=== PATIENT | male | born 1995 | race African-American/Black ===

== ENCOUNTER 2022-08-06 15:15 | Emergency (ER) | payer SELFPAY ==
[~2022-08-06] VITALS: Ht 188 cm; Wt 81.8 kg
[2022-08-06 15:40] VITALS: TEMP 98
[2022-08-06 16:21] LABS: BASO % 0.5 % (0.0-2.0); EOS % 0.2 % (0.0-4.0); GRAN # 2.2 K/mm3 (1.4-6.5); GRAN % 51.5 % (42.2-75.2); HEMATOCRIT 45.7 % (42.0-52.0); HEMOGLOBIN 16.4 g/dl (13.5-18.0); LYMPH # 1.5 K/mm3 (1.2-3.4); LYMPH % 36.1 % (20.0-51.0); MEAN CELL VOLUME 82 fl (80.0-100.0); MEAN CORPUSCULAR HEMOGLOBIN 29 pg (27-31); MEAN CORPUSCULAR HGB CONC 36 g/dl (33.0-37.0); MEAN PLATELET VOLUME 9.9 fl (7.4-10.4); MONO # 0.5 K/mm3 (0.1-0.6); MONO % 11.2 % (1.7-9.3); PLATELET COUNT 215 K/mm3 (130-400); RED BLOOD COUNT 5.59 M/mm3 (4.20-5.60); REDCELL DISTRIBUTION WIDTH-CV 11.1 % (11.5-14.5)
[2022-08-06 16:46] LABS: ALANINE AMINOTRANSFERASE 13 U/L (0-55); ALBUMIN 3.8 gm/dL (3.5-5.0); ALKALINE PHOSPHATASE 82 U/L (40-150); ANION GAP 20 mmol/L (7-16); AST,SGOT 13 U/L (5-34); BILIRUBIN,TOTAL 0.9 mg/dL (0.2-1.2); BLOOD UREA NITROGEN 12 mg/dL (9-21); CALCIUM 9.6 mg/dL (8.4-10.2); CARBON DIOXIDE 15 mmol/L (22-29); CHLORIDE 99 mmol/L (98-107); CREATININE, serum 1.55 mg/dL (0.72-1.25); GLUCOSE 295 mg/dL (70-99); POTASSIUM 3.9 mmol/L (3.5-4.5); SODIUM 134 mmol/L (136-145); TOTAL PROTEIN 6.7 gm/dL (6.2-8.1)
[2022-08-06 16:56] LABS: TROPONIN-I < 0.010 ng/mL (0.00-0.033)
[2022-08-06] MEDS ORDERED: ZOFRAN ODT4 MG PO (20:02)
[2022-08-06 20:13] VITALS: BP 128/91; PULSE 81
== END 2022-08-06 20:31 | disposition home or self-care (01) ==
LOC: COL.ER 15:15
PROVIDERS: Emergency Medicine
DX: N17.9 Acute kidney failure, unspecified (principal); E86.0 Dehydration; F12.90 Cannabis use, unspecified, uncomplicated; R79.1 Abnormal coagulation profile; R11.10 Vomiting, unspecified; R00.0 Tachycardia, unspecified; E11.9 Type 2 diabetes mellitus without complications; Z79.4 Long term (current) use of insulin; Z20.822 Contact with and (suspected) exposure to COVID-19; Z28.310 Unvaccinated for COVID-19
CPT/HCPCS: J1790; J2405; J2765; J7120; Q9967